=== PATIENT | female | born 1960 | race Two or more races ===

== ENCOUNTER 2017-07-11 09:00 | Outpatient (CLI) | payer BC | END 2017-07-11 23:59 | disposition home or self-care (01) | LOC: WOU 09:00 | PROVIDERS: ATTEND Specialist | DX: Z01.818 Encounter for other preprocedural examination (principal); T86.828 Other complications of skin graft (allograft) (autograft); M05.60 Rheumatoid arthritis of unspecified site with involvement of other organs and systems; M79.7 Fibromyalgia; Z79.899 Other long term (current) drug therapy; R05 Cough | CPT/HCPCS: 71046; G0463 ==

== ENCOUNTER 2017-07-19 09:56 | Outpatient (CLI) | payer BC | END 2017-07-19 23:59 | disposition home or self-care (01) | LOC: WOU 09:56 | PROVIDERS: ATTEND Specialist | DX: T86.828 Other complications of skin graft (allograft) (autograft) (principal); M05.60 Rheumatoid arthritis of unspecified site with involvement of other organs and systems; M79.7 Fibromyalgia; Z79.899 Other long term (current) drug therapy | CPT/HCPCS: A6253; A6402; G0463 ==